=== PATIENT | male | born 1990 | race Asian ===

== ENCOUNTER 2016-10-05 09:43 | Emergency (ER) | payer OTHER ==
[2016-10-05 09:52] VITALS: BP 137/75; PULSE 90; TEMP 98.3
[2016-10-05] MEDS ORDERED: ACETAMINOPHEN 500 MG TABLET (FP) PO ONE (10:26)
[2016-10-05] MEDS ORDERED: ACETAMINOPHEN 500 MG TABLET (FP) ONE (10:30)
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
== END 2016-10-05 10:59 | disposition home or self-care (01) ==
LOC: JERFT 09:43
DX: S16.1XXA Strain of muscle, fascia and tendon at neck level, initial encounter (principal); M54.5 Low back pain; V43.52XA Car driver injured in collision with other type car in traffic accident, initial encounter; Y92.411 Interstate highway as the place of occurrence of the external cause; W22.11XA Striking against or struck by driver side automobile airbag, initial encounter; Y93.89 Activity, other specified; Y99.9 Unspecified external cause status
CPT/HCPCS: 72050-TC; 99281-25